=== PATIENT | male | born 1975 | race Caucasian/White ===

== ENCOUNTER 2020-01-24 15:35 | Inpatient (IN) | payer OTHER ==
[~2020-01-24] VITALS: Ht 195.6 cm; Wt 119.7 kg
[2020-01-24] VITALS (10 sets, daily range): BP systolic 106–146; BP diastolic 57–93
[2020-01-24 16:00] LABS: ABSOLUTE BASOPHILS 0.2 thou/uL (0.0-0.2); ABSOLUTE EOSINOPHILS 0.3 thou/uL (0.0-0.7); ABSOLUTE NEUTROPHILS 7.1 thou/uL (1.6-8.1); BASOPHILS 1.3 %; EOSINOPHILS 2.7 %; HEMATOCRIT 44.9 % (42.0-52.0); HEMOGLOBIN 15.2 gm/dL (14.0-18.0); LYMPHOCYTES 31.8 %; MCH 32.1 pg (26.0-34.0); MCHC 33.8 g/dL (28.0-37.0); MONOCYTES 8.2 %; MPV 7.8 fl. (7.2-11.1); NUCLEATED RBCS 0 /100WBC; PLATELET COUNT* 274 thou/uL (150-400); RBC 4.73 mil/uL (4.50-6.00); RDW-CV 13.1 % (10.5-14.5); WBC 12.6 thou/uL (4.0-11.0)
[2020-01-24 16:07] LABS: CALCIUM 8.7 mg/dL (8.5-10.1); CREATININE 1.1 mg/dL (0.6-1.3); POTASSIUM 3.7 mmol/L (3.5-5.1)
[2020-01-24 16:17] LABS: ALBUMIN 4.1 g/dL (3.4-5.0); MAGNESIUM 2.1 mg/dL (1.8-2.4); TOTAL BILIRUBIN 0.2 mg/dL (<0.1-1.0); TOTAL PROTEIN 7.4 g/dL (6.4-8.2)
[2020-01-24 17:07] LABS: URINE BILIRUBIN NEGATIVE (Negative); URINE BLOOD NEGATIVE (Negative); URINE CLARITY CLEAR; URINE COLOR YELLOW; URINE GLUCOSE-RANDOM NEGATIVE (Negative); URINE KETONES NEGATIVE (Negative); URINE LEUKOCYTES-REFLEX NEGATIVE (Negative); URINE NITRITE-REFLEX NEGATIVE (Negative); URINE PROTEIN NEGATIVE (Negative); URINE SPECIFIC GRAVITY 1.025 (1.005-1.030); URINE UROBILINOGEN 0.2 E.U./dl (0.2-1.0)
[2020-01-24 17:16] LABS: AMP/METHAMP Negative (Negative); BARBITURATES Negative (Negative); BENZODIAZEPINES Negative (Negative); COCAINE Negative (Negative); METHADONE Negative (Negative); OPIATES Negative (Negative); PCP Negative (Negative); THC Negative (Negative)
--- NOTE | 2020-01-24 17:50 | NUR ---
DORA ZARCO HAVING RUNS OF [employer], DR. COY NOTIFIED.
[2020-01-25] VITALS (38 sets, daily range): BP systolic 93–139; BP diastolic 51–86
[2020-01-25 04:05] LABS: ABSOLUTE BASOPHILS 0.1 thou/uL (0.0-0.2); ABSOLUTE EOSINOPHILS 0.3 thou/uL (0.0-0.7); ABSOLUTE LYMPHOCYTES 3.1 thou/uL (0.8-5.3); ABSOLUTE MONOCYTES 0.9 thou/uL (0.0-1.2); ABSOLUTE NEUTROPHILS 6.5 thou/uL (1.6-8.1); BASOPHILS 1.1 %; EOSINOPHILS 3.1 %; HEMATOCRIT 44.1 % (42.0-52.0); LYMPHOCYTES 28.7 %; MCH 31.8 pg (26.0-34.0); MCV 93.7 fL (80.0-100.0); MONOCYTES 8.2 %; MPV 7.7 fl. (7.2-11.1); NUCLEATED RBCS 0 /100WBC; PLATELET COUNT* 250 thou/uL (150-400); POLYS 58.9 %; RDW-CV 13.2 % (10.5-14.5)
--- NOTE | 2020-01-25 04:15 | NUR ---
ASSUMED CARE AT 1900H, ON RA AND TOLERATED. SEEN ON BED CALM AND WITH HR 100-140BPM IN AND OUT FROM VTACH. NO CHEST PAIN. CARDIOLOGY AWARE WITH ORDER MADE AND CARRIED OUT. ADENOSINE AND AMIODARONE BOLUS GIVE, PT HR MORE CONTROLLED WITH OCCASIONAL RUNS OF PVC'S AND VTACH. PT FEELS BETTER ACCORDING TO HIM. PT SLEPT WELL. CONTINUE MONITORING AND TOWARDS GOALS. STILL ON AMIODARONE DRIP AT 1MG/MIN.
[2020-01-25 04:23] LABS: CALCIUM 8.5 mg/dL (8.5-10.1)
--- NOTE | 2020-01-25 10:19 | EKG ---
[place] [address] ELECTROCARDIOGRAM REPORT Name: LASTCHAS E Room: [address] ADM IN M.R.#: [id number] Admission: 01/24/20 Attend Phys: Hardy Paredes, Discharge: Date of : 77 Date of Service: 01/24/20 1541 Report #: [id number] THIS REPORT FOR: //name// [facility] ED Test Date: 2020-01-24 Test Time: 15:41:26 Pat Name: CHAS NI Department: Room: 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 : 1975 Requested By: Italo Almanza Order Number: [id number] MD: John Fowler Measurements Intervals [place] Rate: 142 P: MN: QRS: 43 QRSD: 101 T: 11 QT: 339 QTc: 521 Interpretive Statements sinus rhythm Ventricular tachycardia, unsustained ST elevation, consider early repolarization Baseline wander in lead(s) II,III,aVF,V4 No previous ECG available for comparison Electronically Signed On 01-25-2020 10:19:20 CDT by John Fowler [email or web address] <ELECTRONICALLY SIGNED> By: John Fowler MD, FACC 01/25/20 1019 1541 1541 John Fowelr MD, [facility] /EPI
--- NOTE | 2020-01-25 10:24 | EKG ---
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
--- NOTE | 2020-01-25 13:35 | CARD ---
[address] [address] CARDIAC CATH REPORT Name: CHAS NI Room: [address] IN [facility].#: [id number] Admission: 01/24/20 Attend Phys: Hardy Paredes MD Discharge: Date of : 77 Report #: [id number] THIS REPORT FOR: //name// cc: Altaf Espinoza Herbert E. DO ~ APPROVED REPORT Study performed: 01/25/2020 08:45:32 Patient Details Patient Status: In-Patient Room #: ICU 2 The patient is a 44 year-old male Event Personnel Sukhdev Barker RN RN, Anna Garnett Kramer, Jessie RTR Malcolm Felix David Enrollment Coordinator Procedures Performed Left Heart Cath w/or w/o Coronaries [id number] [facility] Indication Arrhythmia Risk Factors Tobacco History () Admission/Lab Medications/Medications given during procedure Heparin Unfract., Midazolam (Versed) IV 2 mg, Fentanyl IV 50 mcg, Lidocaine Subcut 10 ml, Nitroglycerin IA 200 mcg, Verapamil IA 2.5 mg, Heparin IV 5000 units Procedure Narrative The patient was brought electively to the Cardiac Catheterization Laboratory and was prepped and draped in a sterile manner. The right wrist was infiltrated with 2% Lidocaine subcutaneous anesthesia. A Slender Glidesheath sheath was inserted into the right radial artery. Coronary angiography was performed using coronary diagnostic catheters. The right coronary system was accessed and visualized with a JR4 6fr Diagnostic catheter. The left coronary system was accessed and visualized with a JL4 6fr Diagnostic catheter. The left ventricle was accessed and visualized with a Pigtail 6fr Diagnostic catheter. Left ventricular/Aortic Valve gradient assessed via catheter pullback. Left ventriculogram was performed in LUA projection. Closure device was deployed with a 6 [place] [address] CARDIAC CATH REPORT Name: CHAS NI Room: [address] IN [facility]#: [id number] Admission: 01/24/20 Attend Phys: Hardy Paredes MD Discharge: Date of : 77 Report #: [id number] tolerated the procedure well and there were no complications associated with the procedure. There was no hematoma. Intraoperative Conscious Sedation Sedation start time: 924 Case end Time: 952 Fentanyl 50 mcg Versed 2 mg Fluoro Time: 3.0 minutes Dose: DAP 93463 cGycm2 997.00 mGy Contrast Type and Amount: Visipaque 100 ml Coronary Angiography The patient's coronary anatomy is right dominant. [place] Artery Percent Stenosis Left Main: 0 % Prox LAD: 0 % Mid/Distal LAD: 0 % Circumflex: 0 % RCA: 0 % Ramus: % Left Ventriculography The left ventricle is normal in size with normal contractility. The left ventricular ejection fraction is estimated to be 50-55%. Left ventricular wall motion abnormalities are not present. There is no mitral insufficiency. Hemodynamics The aortic pressure is 108/82 mmHg with a mean of 93 mmHg. The left ventricular pressure is 107/10 mmHg with a mean of mmHg. The left ventricular end diastolic pressure is 10 mmHg. There was no gradient across the aortic valve upon pullback. Pullback from the left ventricle to the aorta revealed no gradient across the aortic valve. Conclusion 1. normal coronary arteries 2. LVEF 50-55% Recommendations consider antiarrhythmic therapy <ELECTRONICALLY SIGNED> By: John Fowler MD, FACC 01/25/20 1335 1335 [id number] Fowler MD, FACC /INF
--- NOTE | 2020-01-25 14:04 | 2DMMODE ---
[place] [address] 2 D/M-MODE ECHOCARDIOGRAM Name: CHAS NI Room: [address] ADM IN M.R.#: [id number] Admission: 01/24/20 Attend Phys: Hardy Paredes, Discharge: Date of : 77 Date of Service: 01/25/20 1404 Report #: [id number] THIS REPORT FOR: cc: Altaf Espinoza Herbert E. DO Blick, David R. MD [facility] ~ APPROVED REPORT Study performed: 01/25/2020 11:58:09 EXAM: Comprehensive 2D, Doppler, and color-flow Echocardiogram Patient Location: Bedside BSA: 2.56 HR: 79 bpm BP: 139/86 mmHg Other Information Study Quality: Adequate Indications Abnormal ECG 2D Dimensions IVSd: 11.04 (7-11mm) LVOT Diam: 24.29 (18-24mm) LVDd: 45.41 mm PWd: 10.65 (7-11mm) Ascending Ao: 35.05 (22-36mm) LVDs: 35.61 (25-40mm) Aortic Root: 34.59 mm Volumes Left Atrial Volume (Systole) LA ESV Index: 13.70 mL/m2 Aortic Valve AoV Peak Jose.: 0.99 m/s AO Peak Gr.: 3.92 mmHg LVOT Max P.40 mmHg AO Mean Gr.: 2.25 mmHg LVOT Mean P.10 mmHg LVOT Max V: 0.77 m/s AO V2 VTI: 18.42 cm LVOT Mean V: 0.48 m/s JAISON (VTI): 3.75 cm2 LVOT V1 VTI: 14.91 cm Mitral Valve E/A Ratio: 1.03 [place] [address] 2 D/M-MODE ECHOCARDIOGRAM Name: CHAS NI Room: [address]#: [id number] Admission: 01/24/20 Attend Phys: Hardy Paredes, Discharge: Date of : 77 Date of Service: 01/25/20 1404 Report #: [id number] Decel. Time: 232.06 ms MV E Max Jose.: 0.77 m/s MV PHT: 67.30 ms MVA (PHT): 3.27 cm2 TDI E/Lateral E': 7.00 E/Medial E': 8.56 Medial E' Jose.: 0.09 m/s Lateral E' Jose.: 0.11 m/s Pulmonary Valve PV Peak Jose.: 0.96 m/s PV Peak Gr.: 3.66 mmHg Tricuspid Valve RAP Estimate: 5.00 mmHg TR Peak Gr.: 10.79 mmHg RVSP: 15.79 mmHg PA Pressure: 15.79 mmHg Left Ventricle The left ventricle is normal size. There is normal LV segmental wall motion. There is normal left ventricular wall thickness. Left ventricular systolic function is normal. The left ventricular ejection fraction is within the normal range. LVEF is 50-55%. Right Ventricle The right ventricle is normal size. The right ventricular systolic function is normal. Atria The left atrium size is normal. The right atrium size is normal. Aortic Valve The aortic valve is normal in structure. No aortic regurgitation is present. There is no aortic valvular stenosis. Mitral Valve The mitral valve is normal in structure. There is trace mitral valve regurgitation noted. No evidence of mitral valve stenosis. Tricuspid Valve The tricuspid valve is normal in structure. Trace tricuspid regurgitation. Pulmonic Valve The pulmonary valve is normal in structure[place] [address] 2 D/M-MODE ECHOCARDIOGRAM Name: CHAS NI Room: [address]#: [id number] Admission: 01/24/20 Attend Phys: Hrady Paredes, Discharge: Date of : 77 Date of Service: 01/25/20 1404 Report #: [id number] regurgitation. Great Vessels The aortic root is normal in size. IVC is normal in size and collapses >50% with inspiration. Pericardium There is no pericardial effusion. <Conclusion> Left ventricular systolic function is normal. The left ventricular ejection fraction is within the normal range. <ELECTRONICALLY SIGNED> By: John Fowler MD, FACC 01/25/20 1404 03 140 John Fowler MD, FACC /INF
--- NOTE | 2020-01-25 14:47 | NUR ---
ICU rounds: Pt had cath this AM, no interventions. Pt is A&O. Resides at home. Active and independent. No DME. No hx of HH or SNF. Home at pa
--- NOTE | 2020-01-25 15:41 | CON ---
[address] [address] CONSULTATION Name: CHAS NI Room: [address] ADM IN M.R.#: [id number] Admission: 01/24/20 Attend Phys: Hardy Paredes MD Discharge: Date of : 77 Report #: [id number] THIS REPORT FOR: //name// cc: Altaf Espinoza Herbert E. DO ~ THIS REPORT FOR: //name// DATE OF SERVICE: 01/25/2020 CARDIOLOGY CONSULTATION HISTORY OF PRESENT ILLNESS: The patient is a 44-year-old single white male who I was asked to see in the hospital today after he was noted to have a wide complex tachycardia. The patient denies previous history of heart disease. He stays very active and has had no previous cardiac evaluation; however, he has had no history of heart murmur. He does note about a year ago, he had an episode at work where he felt his heart beating fast. It would last off and on throughout the day. It then resolved. Two days ago, he was at work when he felt his heart beating fast. Again, it would occur off and on. It finally resolved. Yesterday, he was at work at 2 in the afternoon, again felt his heart beating rapid. He denied lightheadedness, shortness of breath, chest tightness. He has had no recent fever, cough or lower extremity edema. He finally drove himself to the Emergency Room here at [facility]. He was noted to have a wide complex tachycardia. He was started on intravenous amiodarone. The tachycardia resolved. I was asked to see him for further evaluation and treatment. He denies a history of exertional tightness, dyspnea on exertion, or edema. PAST MEDICAL HISTORY: He has had hand surgery following an accident. No history of hypertension, diabetes. He is on no medications. ALLERGIES: He had no known drug allergies. FAMILY HISTORY: Negative for heart disease or sudden . SOCIAL HISTORY: He is single, lives in [place] with a girlfriend. He is . He works for a [employer] company. Smokes a pack of cigarettes a day. Rarely drinks alcohol. Has 1 cup of coffee a day. No illicit drug use. REVIEW OF SYSTEMS: He does snore at night. No history of stroke, seizures, liver disease, kidney disease, cancer, chronic skin condition, or psychiatric illness. PHYSICAL EXAMINATION: GENERAL: Revealed a large male. He is 6 feet 4 inches, 250 pounds. VITAL SIGNS: He had a blood pressure of 110/60, pulse is 80. [place] [address] CONSULTATION Name: CHAS NI Room: [address] IN ..#: [id number] Admission: 01/24/20 Attend Phys: Hardy Paredes MD Discharge: Date of : 77 Report #: [id number] HEENT: He was anicteric. Conjunctivae are pink. Mucous membranes moist. NECK: Veins do not appear distended. No carotid bruits. Neck supple. CHEST: Clear to auscultation. CARDIAC: Regular rate and rhythm without murmur or rub. ABDOMEN: Soft. EXTREMITIES: Had no edema. Posterior tibial pulse 2+ bilaterally. SKIN: Cool and dry. NEUROLOGIC: Nonfocal. DIAGNOSTIC DATA: His ECG on admission yesterday showed a sinus rhythm with frequent and consecutive wide complex beats, lasting several seconds consistent with ventricular tachycardia. Today his ECG shows a sinus rhythm. There is no QT prolongation. Occasional PVC. There are no ST or T-wave change noted. His workup in the Emergency Room last night; he had a portable chest x-ray that showed some atelectasis, otherwise clear lung hester. LABORATORY DATA: Sodium 134, potassium 4.0, creatinine 1.0, glucose 139. Liver function studies were normal. Troponins 0.06. BNP 18, magnesium 2.1. His urine drug screen was negative. White blood cell count 12.6, hemoglobin 15.2. COVID stat test was negative. Urinalysis negative for protein. IMPRESSION AND RECOMMENDATIONS: 1. Wide complex tachycardia. Consistent with ventricular tachycardia. Recommend cardiac catheterization to rule out coronary artery disease. At this time, I will continue amiodarone. 2. Snoring at night. I would rule out sleep apnea. 3. Obesity. <ELECTRONICALLY SIGNED> By: John Fowler MD, [facility] 01/25/20 1541 0823 [id number] Hans Fowler MD, FACC /nt
[2020-01-26] VITALS (8 sets, daily range): BP systolic 100–138; BP diastolic 60–84
[2020-01-26 04:52] LABS: ABSOLUTE BASOPHILS 0.1 thou/uL (0.0-0.2); ABSOLUTE EOSINOPHILS 0.2 thou/uL (0.0-0.7); ABSOLUTE MONOCYTES 0.8 thou/uL (0.0-1.2); EOSINOPHILS 2.4 %; HEMATOCRIT 41.7 % (42.0-52.0); HEMOGLOBIN 14.2 gm/dL (14.0-18.0); LYMPHOCYTES 32.5 %; MCHC 34.1 g/dL (28.0-37.0); MONOCYTES 8.7 %; NUCLEATED RBCS 0 /100WBC; PLATELET COUNT* 234 thou/uL (150-400); POLYS 55.4 %; RBC 4.44 mil/uL (4.50-6.00); RDW-CV 12.9 % (10.5-14.5); WBC 9.1 thou/uL (4.0-11.0)
--- NOTE | 2020-01-26 05:27 | NUR ---
NSR WITH ONLY A COUPLE OF EPISODES OF PVCs THROUGH THE NIGHT. PATIENT DENIES PAIN. SLEPT THROUGH THE NIGHT. ABLE TO GET TO THE SIDE OF THE BED FOR COMFORT. OTHERWISE UNEVENTFUL NIGHT. WILL CONTINUE MONITORING FOR THE REMAINDER OF SHIFT.
[2020-01-26 06:01] LABS: ANION GAP 7 mmol/L (7-16); BUN 11 mg/dL (7-18); CALCIUM 8.3 mg/dL (8.5-10.1); CHLORIDE 106 mmol/L (98-107); CHOLESTEROL 174 mg/dL (<200); CO2 26 mmol/L (21-32); CREATININE 1.2 mg/dL (0.6-1.3); GLUCOSE 129 mg/dL (70-99); HDL CHOLESTEROL 32 mg/dL (>40); LDL CHOLESTEROL 122 mg/dL (<100); MAGNESIUM 2.4 mg/dL (1.8-2.4); POTASSIUM 4.2 mmol/L (3.5-5.1); SERUM ASSESSMENT Clear; SODIUM 139 mmol/L (136-145); TC:HDL 5.4 Ratio (Not establshd); TRIGLYCERIDE 101 mg/dL (<150); VLDL 20 mg/dL (<40)
--- NOTE | 2020-01-26 10:49 | EKG ---
[place] [address] ELECTROCARDIOGRAM REPORT Name: CHAS NI Room: [address] IN M.R.#: [id number] Admission: 01/24/20 Attend Phys: Hardy Paredes, Discharge: Date of : 77 Date of Service: 01/26/20 0759 Report #: [id number] THIS REPORT FOR: //name// [facility] Test Date: 2020-01-26 Test Time: 07:59:14 Pat Name: CHAS NI Department: Room: [address] Gender: M Draw Operator: SMFe : 1975 Requested By: John Fowler Order Number: [id number] Reading MD: Chas Negro Measurements Intervals [place] Rate: 79 P: 26 SD: 139 QRS: -8 QRSD: 97 T: 25 QT: 404 QTc: 464 Interpretive Statements Sinus rhythm Compared to ECG 01/25/2020 05:42:20 Ventricular premature complex(es) no longer present Electronically Signed On 01-26-2020 10:49:28 CDT by Chas Negro [email or web address] <ELECTRONICALLY SIGNED> By: Jalil Negro MD, [facility] 01/26/20 1049 0759 0759 Jalil Negro MD, [facility] /EPI
--- NOTE | 2020-01-26 15:16 | NUR ---
ICU rounds: Tele status, moving to room 225. Anticipate dc tomorrow.
--- NOTE | 2020-01-26 16:22 | NUR ---
PT A&O, DENIES PAIN. ECG SHOWS SR, VSS. RT RADIAL SITE C/D/I. TOLERATING DIET. PT TO GO HOME ON MONITOR TOMORROW. REPORT GIVEN TO NAKIA RHODES.
--- NOTE | 2020-01-26 18:15 | NUR ---
PT. TRANSFERED FROM ICU BY WHEELCHAIR. AOX4, VSS, DENIES PAIN OR DISCOMFORT, AGREE WITH ASSESSMENT AND SCREENING BY TORRIE AVINA. PT. IN CHAIR, VISITING WITH MOTHER, IN NO APPARENT DISTRESS, AT THIS TIME. CALL LIGHT AND PERSONAL BELONGINGS PLACED WITHIN REACH.
[2020-01-27] VITALS: BP 107/68
--- NOTE | 2020-01-27 01:00 | NUR ---
ASSUMED CARE OF PT AT 1900. PT IS ALERT AND ORIENTED. VSS. PERRLA. NO COMPLAINTS OF PAIN. PT IS IN SINUS RYTHM ON THE TELEMETRY. PT IS RESTING COMFORTABLY IN BED. RESPIRATIONS ARE EVEN AND NONLABORED. WILL CONTINUE TO MONITOR PT.
[2020-01-27 04:00] VITALS: BP 107/71
[2020-01-27 07:30] VITALS: BP 124/84
[2020-01-27] MEDS ORDERED: LIPITOR10 MG PO (08:54)
[2020-01-27] MEDS ORDERED: DILTIAZEM 24HR120 M1 PO (08:54)
[2020-01-27 11:01] VITALS: BP 124/84
[2020-01-27 13:08] LABS: ANA INTERPRETATION Negative (Negative)
--- NOTE | 2020-01-30 15:13 | NUR ---
Attempted to make a follow up phone call, no answer. Left a message with a number to return my call if he had any questions or concerns.
== END 2020-01-27 11:00 | disposition home or self-care (01) | DRG 287 ==
LOC: M.ERS 15:35 → M.TBA-ER 17:15 → M.ERS 17:15 → M.ICU 17:43 → M.TBA-ER 17:43 → M.ICU 18:29 → M.2W 01-26 16:15
PROVIDERS: Emergency Medicine Emergency Medical Services; Internal Medicine; Internal Medicine Cardiovascular Disease; ADMIT Internal Medicine; ATTEND Internal Medicine
PROC: B211YZZ Fluoroscopy of Multiple Coronary Arteries using Other Contrast (ICD-10-PCS; principal; 2020-01-25)
PROC: 4A023N7 Measurement of Cardiac Sampling and Pressure, Left Heart, Percutaneous Approach (ICD-10-PCS; principal; 2020-01-25)
PROC: B215YZZ Fluoroscopy of Left Heart using Other Contrast (ICD-10-PCS; principal; 2020-01-25)
DX: I47.2 Ventricular tachycardia (principal); E87.1 Hypo-osmolality and hyponatremia; R65.10 Systemic inflammatory response syndrome (SIRS) of non-infectious origin without acute organ dysfunction; J98.11 Atelectasis; E78.5 Hyperlipidemia, unspecified; I10 Essential (primary) hypertension; E11.9 Type 2 diabetes mellitus without complications; F17.210 Nicotine dependence, cigarettes, uncomplicated; E78.00 Pure hypercholesterolemia, unspecified; G47.33 Obstructive sleep apnea (adult) (pediatric); E66.9 Obesity, unspecified; Z20.828 Contact with and (suspected) exposure to other viral communicable diseases; Z91.018 Allergy to other foods; Z68.31 Body mass index [BMI] 31.0-31.9, adult